=== PATIENT | female | born 1960 | race Asian ===

== ENCOUNTER → 2018-08-07 | Outpatient (CLI) | payer OTHER | END | disposition home or self-care (01) | LOC: LAB SHORT 07:56 → PLD 07:56 | DX: R87.611 Atypical squamous cells cannot exclude high grade squamous intraepithelial lesion on cytologic smear of cervix (ASC-H) (principal); N85.00 Endometrial hyperplasia, unspecified | CPT/HCPCS: 88305; 88342 ==